=== PATIENT | female | born 1990 | race Two or more races ===

== ENCOUNTER 2021-10-11 19:20 | Emergency (ER) | payer MEDICAID ==
[~2021-10-11] VITALS: Ht 157.5 cm; Wt 56.4 kg
[2021-10-11 20:31] VITALS: BP 116/77
[2021-10-11 21:59] LABS: BASOPHILS % 0.4 % (0.0-2.0); EOSINOPHILS % 1.7 % (0.0-5.0); HEMOGLOBIN. 13.1 g/dL (12.0-16.0); MEAN CORPUSCULAR HEMOGLOBIN 25.4 pg (28.0-32.0); MEAN CORPUSCULAR VOLUME 75.5 fL (81.0-99.0); MEAN PLATELET VOLUME 8.1 fl (7.4-10.4); NEUTROPHILS % 42.9 % (40.0-76.0); PLATELET 410 x1000/uL (130-400); RED BLOOD CELL COUNT 5.16 mill/uL (4.2-5.4)
[2021-10-11 22:04] LABS: HCG SCREEN NEGATIVE
[2021-10-11 22:05] LABS: CHLORIDE 104 mEq/L (98-107)
== END 2021-10-11 22:30 | disposition left against medical advice (07) ==
LOC: ER 19:20
DX: R11.2 Nausea with vomiting, unspecified (principal); R53.1 Weakness
CPT/HCPCS: 36415; 80053; 84703; 85025